=== PATIENT | female | born 1990 | race Caucasian/White ===

== ENCOUNTER 2016-11-17 17:29 | Emergency (ER) | payer OTHER ==
[~2016-11-17] VITALS: Ht 149.9 cm; Wt 73.9 kg
[2016-11-17] MEDS ORDERED: GIAN1TAB PO (17:43)
--- NOTE | 2016-11-17 19:30 | REP ---
LEFT HAND, FOUR VIEWS: There is no evidence of an acute fracture, dislocation or intrinsic bone disease. IMPRESSION: No fracture or dislocation. Signed by Kaden Lopez MD 11/17/2016 08:20 P
[2016-11-17 19:32] VITALS: BP 146/81
[2016-11-17] MEDS ORDERED: AUGM875T28 PO (19:43)
[2016-11-17] MEDS ORDERED: AUGMENTIN 875 MG TAB PO ONE (19:45)
[2016-11-17] MEDS ORDERED: ADACEL/BOOSTRIX VACCINE (DIPHTH/PERTUSS/ACELL/TETANUS)0.5ML SYR (90715) IM ONE (20:00)
== END 2016-11-17 20:03 | disposition home or self-care (01) ==
LOC: M ED 17:29
DX: S61.452A Open bite of left hand, initial encounter (principal); W50.3XXA Accidental bite by another person, initial encounter; Y92.9 Unspecified place or not applicable; Y93.9 Activity, unspecified; Y99.9 Unspecified external cause status